=== PATIENT | female | born 1970 | race Caucasian/White ===

== ENCOUNTER 2016-11-19 02:35 | Emergency (ER) | payer OTHER | END 2016-11-19 05:10 | disposition home or self-care (01) | LOC: ER1 02:35 | DX: K22.2 Esophageal obstruction (principal) | CPT/HCPCS: 96374; 96375; 99283; J1610; J2765 ==

== ENCOUNTER 2021-04-27 20:19 | Emergency (ER) | payer OTHER ==
[2021-04-27] MEDS ORDERED: DIFLUCAN150 MG PO (23:36)
[2021-04-29 22:09] LABS: CHLAMYDIA TRACHOMATIS, NAA Negative (Negative); NEISSERIA GONORRHOEAE, NAA Negative (Negative)
== END 2021-04-27 23:55 | disposition home or self-care (01) ==
LOC: ER1 20:19
DX: N89.8 Other specified noninflammatory disorders of vagina (principal); E78.5 Hyperlipidemia, unspecified; I10 Essential (primary) hypertension; Z90.49 Acquired absence of other specified parts of digestive tract; Z90.89 Acquired absence of other organs; Z90.710 Acquired absence of both cervix and uterus; F17.210 Nicotine dependence, cigarettes, uncomplicated
CPT/HCPCS: 81001; 87086; 99283